=== PATIENT | female | born 1955 | race Caucasian/White ===

== ENCOUNTER → 2020-03-19 10:43 | Outpatient (CLI) | payer MEDICARE, OTHER, SELFPAY ==
--- NOTE | 2020-03-19 10:50 | XR_ITS ---
PROCEDURE: XR SHOULDER LT MIN 2V CLINICAL INDICATION: pain COMPARISON: CR XR HUMERUS LT from 03/19/2020 FINDINGS: No fracture or dislocation. No lytic or blastic change. There is normal mineralization. There are mild osteoarthritic changes of the glenohumeral joint. The shoulder has an otherwise unremarkable appearance. No acute fracture or dislocation. There are mild degenerative changes at the elbow. Other findings:None. IMPRESSION: No acute fracture. Mild degenerative changes Dictated by: Chevy Domingo MD 03/19/2020 13:03 Chevy Domingo MD in [place] 03/19/2020 13:03
--- NOTE | 2020-03-19 10:50 | XR_ITS ---
PROCEDURE: XR HUMERUS LT CLINICAL INDICATION: pain COMPARISON: No exams were available for comparison FINDINGS: No fracture or dislocation. No lytic or blastic change. There is normal mineralization. There are mild osteoarthritic changes at the shoulder joint and elbow. Other findings:None. IMPRESSION: Mild degenerative change otherwise negative Dictated by: Chevy Domingo MD 03/19/2020 13:04 Chevy Domingo MD in [place] 03/19/2020 13:04
== END ==
PROVIDERS: PCP Family Medicine; Visit Provider Family Medicine
DX: M79.18 Myalgia, other site (principal)
CPT/HCPCS: 73030; 73060

== ENCOUNTER → 2020-03-29 11:08 | Outpatient (CLI) | payer MEDICARE, OTHER, SELFPAY ==
--- NOTE | 2020-03-29 11:08 | MR_ITS ---
PROCEDURE: MR SHOULDER LT WO CON CLINICAL INDICATION: left shoulder pain PT. C/O PAIN AND LIMITED ROM LEFT SHOULDER. PT IS S/P FALL A FEW MONTHS AGO AND PAIN HAS INCREASED SINCE FALL. PRIOR XRAU LT SHOULDER 03/19/2020. COMPARISON: CR XR SHOULDER LT MIN 2V from 03/19/2020 TECHNIQUE: Routine multiplanar multi echo sequences are performed without gadolinium enhancement. FINDINGS: There are osteoarthritic changes of the glenohumeral joint with sub chondral cystic changes of the humeral head laterally at the base of the greater tuberosity. There is some increased T2 signal of the subcortical region of the humeral head superiorly which could be related to developing avascular necrosis. There is focal increased T2 signal of the distal aspect of the supraspinatus tendon with increased T2 and thickening of the supraspinatus tendon consistent with a full-thickness tear. There is a complete tear of the supraspinatus tendon with retraction of the musculotendinous fibers. Fluid is present in the subscapular region in subcoracoid area. The subscapularis tendon is thickened distally. There is a moderate amount fluid in the bicipital tendon sheath in the upper arm area. The bicipital tendon is in place. No obvious labral tear. Degenerative changes are present at the glenohumeral joint. There is mild hypertrophy of the acromioclavicular joint. IMPRESSION: 1. Complete tear of the supraspinatus tendon with retraction of the musculotendinous fibers. 2. Full-thickness tear of the infraspinatus tendon. A complete tear is not felt to be present. 3. Osteoarthritic change of the glenohumeral joint and acromioclavicular joint with subchondral cystic changes of the humeral head laterally in with subcoracoid bursitis. There is some increased T2 signal of the humeral head suggesting bone marrow edema etiology indeterminate. Developing avascular necrosis would be considered. 4. Moderate amount of fluid within the bicipital tendon sheath consistent with tendinitis Dictated by: Chevy Domingo MD 03/31/2020 10:26 Chevy Domingo MD in [place] 03/31/2020 10:26
== END ==
PROVIDERS: PCP Family Medicine; Visit Provider Family Medicine
DX: M25.512 Pain in left shoulder (principal)
CPT/HCPCS: 73221

== ENCOUNTER → 2020-04-12 16:27 | Outpatient (CLI) | payer MEDICARE, OTHER, SELFPAY ==
[2020-04-12 17:28] LABS: Chloride 103 mmol/L (98-107); Potassium 4.5 mmoL/L (3.5-5.1); Sodium 138 mmol/L (136-145)
[2020-04-12 17:29] LABS: Basophils % 0.6 % (0.1-2.0); Hemoglobin 14.6 g/dL (12.2-16.2); Lymphocytes # 1.5 K/mm3 (0.7-4.5); Lymphocytes % 27.9 % (10-50); Mean Corpuscular HGB Conc 32.4 g/dL (31.8-35.4); Mean Corpuscular Volume 89.5 fl (81-99); Mean Platelet Volume 10.9 fl (7.4-10.4); Monocytes # 0.3 K/mm3 (0.1-1.0); Monocytes % 6.1 % (1.7-9.3); Neutrophils # 3.6 K/mm3 (1.8-7.8); Neutrophils % 65.3 % (37.0-80.0); Platelet Count 132 K/mm3 (142-424); Red Blood Count 5.03 M/mm3 (4.20-5.40); Red Cell Distribution Width 14.6 % (11.5-17.5); White Blood Count 5.5 K/mm3 (4.8-10.8)
[2020-04-12 17:31] LABS: Alanine Aminotransferase 122 U/L (12-78); Albumin Level 4.3 g/dl (3.5-5.0); Albumin/Globulin Ratio 1.5 (1.1-1.8); Alkaline Phosphatase 142 U/L (38-126); Anion Gap 9.5 mEq/L (5-15); Aspartate Amino Transferase 97 U/L (14-36); Bilirubin,Total 0.9 mg/dl (0.2-1.3); Blood Urea Nitrogen 20 mg/dl (7-17); Calcium 9.2 mg/dl (8.4-10.2); Carbon Dioxide 30 mmol/L (22.0-30.0); Estimated Glomerular Filt Rate 84 ml/min (>60); GFR (African American) 102 ML/MIN (>60); Globulin 2.8 g/dL (1.3-3.2); Glucose 101 mg/dl (74-100); Total Protein,Serum 7.1 g/dl (6.3-8.2)
== END ==
PROVIDERS: Visit Provider Family Medicine
DX: E66.9 Obesity, unspecified (principal)
CPT/HCPCS: 80053; 85025